=== PATIENT | female | born 1950 | race Caucasian/White ===

== ENCOUNTER → 2023-06-17 07:42 | Outpatient (REF) | payer MEDICARE, SELFPAY | LOC: WDC 07:42 | PROVIDERS: ATTENDING PHYSICIAN Surgery; FAMILY PHYSICIAN Family Medicine | DX: N64.4 Mastodynia (principal); C50.412 Malignant neoplasm of upper-outer quadrant of left female breast | CPT/HCPCS: 76642; 77061; 77065 ==

== ENCOUNTER → 2023-12-10 14:57 | Outpatient (REF) | payer MEDICARE, SELFPAY | LOC: RAD 14:57 | PROVIDERS: ATTENDING PHYSICIAN Physician Assistant Medical; FAMILY PHYSICIAN Family Medicine | DX: M79.641 Pain in right hand (principal) | CPT/HCPCS: 73130 ==

== ENCOUNTER 2024-05-13 00:29 | Inpatient (IN) | payer MEDICARE, SELFPAY ==
[2024-05-12] VITALS (9 sets, daily range): BP systolic 111–131; BP diastolic 64–89; BMI 23.4
[2024-05-12 12:30] LABS: % Basophils 0.8 % (0-2); % Eosinophils 1.5 % (0-6); % Immature Granulocytes 0.3 % (0-0.5); % Lymphocytes 23.1 % (20.5-51.1); % Monocytes 8.6 % (1.7-9.3); % Neutrophils 65.7 % (42.2-75.2); Absolute Basophils 0.1 10^3/uL (0-0.2); Absolute Eosinophils 0.1 10^3/uL (0-0.7); Absolute Lymphocytes 1.7 10^3/uL (1.2-3.4); Absolute Monocytes 0.7 10^3/uL (0.1-0.6); Absolute Neutrophils 4.9 10^3/uL (1.4-6.5); Hematocrit 37.5 % (37.0-47.0); Hemoglobin 12.4 g/dL (12.0-16.0); Mean Corp Hgb Conc. 33.1 g/dL (33.0-37.0); Mean Corpuscular Hgb 31.4 pg (27.0-31.0); Mean Corpuscular Volume 94.9 fL (81.0-99.0); Mean Platelet Volume 8.5 fL (7.4-10.4); Nucleated Red Blood Cells % 0 %; Platelet Count 365 10^3/uL (130-400); Red Blood Cell Count 3.95 10^6/uL (4.20-5.40); Red Cell Dist. Width 13.4 % (11.5-14.5); White Blood Cell Count 7.5 10^3/uL (4.8-10.8)
[2024-05-12 12:45] LABS: ALT (SGPT) 17 U/L (0-35); AST (SGOT) 26 U/L (14-36); Albumin 4.4 g/dl (3.5-5.0); Alkaline Phosphatase 89 U/L (38-126); Blood Urea Nitrogen 16 mg/dl (7-17); Calcium 9.8 mg/dl (8.4-10.2); Carbon Dioxide 24 mmol/L (22-30); Chloride 104 mmol/L (98-107); Glucose 94 mg/dl (70-99); Potassium 4.3 mmol/L (3.5-5.1); Sodium 139 mmol/L (135-145); Total Bilirubin 0.8 mg/dl (0.2-1.3); Total Protein 7.3 g/dl (6.3-8.2); eGFR > 60.00
[2024-05-12 12:54] LABS: Troponin I < 0.012 ng/ml
--- NOTE | 2024-05-12 19:03 | ED.GENMED ---
History of Present Illness
<Bekah Villalba DO - Last Filed: 05/12/24 20:25>
General
Chief Complaint: Chest Pain
Time Seen by Provider: 05/12/24 17:38
History of Present Illness
History of Present Illness:
73-year-old female with history of breast cancer status post left mastectomy in 2018 presenting to the emergency department for chest discomfort. Patient reports about 3 weeks ago she started to have pain in her chest, ribs, back. She notes that
she was having diffuse bone pain. She was seen at [facility], reports unremarkable workup. She thought that maybe her symptoms were secondary to a medication she started taking, Prolia. Her symptoms have overall improved, however reports that she
still having some discomfort in her chest. She became nervous about her symptoms today, reports that her doctor said that her bone pain could be bone cancer, so she came to the hospital for further evaluation. Notes pain with deep inspiration.
Denies difficulty breathing. Denies fever or cough. Denies abdominal pain or GI symptoms. Denies any history of blood clots. Denies additional acute medical complaints
Past History
<Bekah Villalba DO - Last Filed: 05/12/24 20:25>
Past History
ED Past Medical History: HTN ( spirolactone), Seizures (no seizures for 30 yrs carbamezapine (tregertol)) and Other (sz)
Social History
Tobacco: Non-smoker
Alcohol: None
Drug: None
Personal:
Living: with family
Employment: Employed
Family History
Family History: Diabetes
Phy Exam
<Bekah Villalba DO - Last Filed: 05/12/24 20:25>
Physical Exam
Physical Exam:
General: Well-appearing, no clinical signs of dehydration, nontoxic and in no acute distress
HEENT: protecting airway
Neck: appears supple
CV: Normal heart rate, regular rhythm. Mild tenderness to the sternal region
Resp: No accessory muscle use, no increased work of breathing, lungs clear to auscultation bilaterally
Abd: Soft and non-distended, no tenderness to palpation
Extremities: No deformities, no swelling
Neuro: alert, no focal neurologic deficit
: deferred
Rectal: deferred
Psych: Normal affect
Skin: Intact
Scores
<Bekah Villalba, DO - Last Filed: 05/12/24 20:25>
Heart Score for Chest Pain Patients
STEMI patient?: No
History: Slightly or Non-Suspicious
ECG: Normal
Age: >/= 65 years
Risk Factors: 1 or 2 Risk Factors
Troponin: </= Normal Limit
Heart Score for Chest Pain Patients: 3
Heart Score Risk: 2.5% MACE over next 6 weeks
<Karen Mixon, DO - Last Filed: 05/13/24 03:19>
Heart Score for Chest Pain Patients
Heart Score for Chest Pain Patients: 3
Heart Score Risk: 2.5% MACE over next 6 weeks
Course
<Bekah Villalba, DO - Last Filed: 05/12/24 20:25>
Orders/Labs/Results
Orders:
Orders
05/12/24 11:40
EKG [Electrocardiogram (*1)] Urgent
Reason for Study: Chest Pain
EKG- Treatment ONCE
05/12/24 12:18
Complete Blood Count/With Diff Urgent
Comprehensive Metabolic Panel Urgent
NT-proBNP Urgent
Comment: ADD ON
Troponin I Urgent
05/12/24 18:44
D-Dimer Urgent
05/12/24 19:48
CT Chest PE Study Urgent
Comment:
Reason For Exam: positive dimer, chest pain
05/12/24 22:36
Furosemide [Lasix] 40 mg IV ONCE ONE
05/12/24 22:40
Add On- LAB Urgent
Comments:: add on
Tests Added?: pro BNP
05/12/24 23:00
Flush (0.9% Sodium Chloride) [Flush (Nss)] See Dose Instructions IV PER PROTOCOL
05/12/24 23:53
COVID-19 Antigen Urgent
Source: Nasal Swab
Influenza A+B Rapid Molecular Urgent
DORIS Source: Nasal Swab
Specimen Description:
05/13/24 00:00
Admit/Transfer Patient As Directed
Co-Sign Provider:
Level of Care: Inpatient admission
Assign to:: Medical/Surgical
Physician / Group: laure lin
Diagnosis: Right pleural effusion unclear etiology
Reason for Hospitalization: Right pleural effusion unclear etiology
Expected length of stay greater than two midnights?: Yes
ELOS- Estimated Length of Stay in days: 3
I certify the patient meets the requirements for IP care: Yes
05/13/24 00:02
Code Status As Directed
Resuscitation Status: Do not resuscitate
Reached after discussion with pt or family/Healthcare POA: Yes
Decision communicated with: Per patient states nephaiyana Marin is POA [phone]
DNR Bracelet Application ONCE
05/13/24 00:05
PRN Pain Medication Management As Directed
May give lesser potent ordered pain med per pt: Yes
preference::
Protocol:: Medication orders for pain may be administered in a
manner that supports deferring to patient preference
when the pt is:
- Requesting an ordered lesser potent pain medication.
Least to most potent pain medications are defined
as: acetaminophen < NSAID < tramadol < opioids
(morphine, oxycodone, hydromorphone).
- Requesting a lesser dose of the same medication IF
ORDERED.
- Requesting a less intrusive route of administration
if both routes are prescribed by the provider (PO <
IV).
05/13/24 00:12
Code Status As Directed
Resuscitation Status: Full Code
Reached after discussion with pt or family/Healthcare POA: Yes
Decision communicated with: Per patient states faisal Marin is POA [phone]
05/13/24 00:36
Acetaminophen [Tylenol] 650 mg PO Q4HPRN PRN
05/13/24 00:36
Add On- LAB Routine
Tests Added?: Body Fluid Triglycerides
Consult Notification Routine
Specialty to Notify: IRAD (Interventional Radiology)
IRAD CONSULT Routine
Consulting Provider: Justice Garcia
Was physician already notified: No
Reason for Consult/Procedure: Right pleural effusion history of left breast CA mastectomy 2018
Acknowledgement that appropriate orders are entered: Yes
Acid Fast Culture & Smear Routine
DORIS Source: Pleural Fluid
Specimen Description:
Comment: post procedure
Body Fluid Amylase Routine
Fluid Source: Pleural
Body Fluid Cell Count Routine
What is the Body Fluid: pleural fluid
Comment: post procedure
Body Fluid Glucose Routine
Fluid Source: Pleural
Body Fluid LDH Routine
Fluid Source: Pleural
Body Fluid Protein Routine
Fluid Source: Pleural
Body Fluid Triglycerides Routine
Fluid Source: Pleural
Body Fluid pH Routine
Fluid Source: Pleural
Fluid Culture with Gram Stain Routine
DORIS Source: Pleural Fluid
Specimen Description:
Comment: post procedure
Fungus Culture Routine
DORIS Source: Pleural Fluid
Specimen Description:
Fungus Smear Routine
DORIS Source: Pleural Fluid
Specimen Description:
Gram Stain Routine
DORIS Source: Pleural Fluid
Specimen Description:
Comment: POST PROCEDURE
Activity As Directed
Activity Level: As Tolerated
Intake/ Output As Directed
Frequency: Per unit guidelines
Vital Signs As Directed
Frequency: Per unit guidelines
Weight As Directed
Frequency: Daily
IRAD Cytology Routine
Source: Pleural Fluid, Right
Clinical Impression: pos malignancy hx left breast ca
Pt Eval And Treat Routine
Activity Level: As Tolerated
DX Deep Vein Thrombosis Video Routine
05/13/24 06:00
Echo 2D MMode Color/Doppler IN AM
Reason for Study: pericardial effusion
Regular
Complete Blood Count/With Diff IN AM
Comprehensive Metabolic Panel IN AM
05/13/24 08:00
Ascorbic Acid [Vitamin C] 500 mg PO DAILY
Calcium Carbonate [Oscal Oswaldo 500] 500 mg PO TID
Cholecalciferol (Vitamin D3) [VITAMIN D3 (cholecalciferol)] 25 mcg PO DAILY
Lacosamide [Vimpat] 150 mg PO BID
Lactobac/Bifidobac [Visbiome] 1 cap PO DAILY
Magnesium Oxide 500 mg PO DAILY
Spironolactone [Aldactone] 12.5 mg PO DAILY
05/13/24 10:00
Glucose Routine
Hematocrit Routine
Comment: post procedure, add on to morning labs if already drawn
LDH Routine
Comment: post procedure, add on to morning labs if already drawn
Total Protein Routine
Comment: post procedure, add on to morning labs if already drawn
05/13/24 22:00
Heparin 5,000 units SC Q12
05/14/24 06:00
Complete Blood Count/With Diff IN AM
Comprehensive Metabolic Panel IN AM
Abnormal Lab Results
05/12/24 05/12/24
12:18 18:44
RBC 3.95 L 10^6/uL
(4.20-5.40)
MCH 31.4 H pg
(27.0-31.0)
Absolute Monos (auto) 0.7 H 10^3/uL
(0.1-0.6)
D-Dimer 5.24 H ug/mlFEU
(0.00-0.50)
05/12/24 12:18
05/12/24 12:18
Vital Signs
Initial and Last Documented VS:
Initial Vital Signs
Temp Pulse Resp BP Pulse Ox
98 F 83 16 129/74 99
05/12/24 12:06 05/12/24 12:06 05/12/24 12:06 05/12/24 12:06 05/12/24 12:06
Last Documented Vital Signs
Temp Pulse Resp BP Pulse Ox
98.2 F 77 18 131/89 96
05/13/24 00:29 05/12/24 22:41 05/12/24 18:27 05/12/24 23:00 05/12/24 23:00
<Karen Mixon, DO - Last Filed: 05/13/24 03:19>
Orders/Labs/Results
Orders:
Orders
05/12/24 11:40
EKG [Electrocardiogram (*1)] Urgent
Reason for Study: Chest Pain
EKG- Treatment ONCE
05/12/24 12:18
Complete Blood Count/With Diff Urgent
Comprehensive Metabolic Panel Urgent
NT-proBNP Urgent
Comment: ADD ON
Troponin I Urgent
05/12/24 18:44
D-Dimer Urgent
05/12/24 19:48
CT Chest PE Study Urgent
Comment:
Reason For Exam: positive dimer, chest pain
05/12/24 22:36
Furosemide [Lasix] 40 mg IV ONCE ONE
05/12/24 22:40
Add On- LAB Urgent
Comments:: add on
Tests Added?: pro BNP
05/12/24 23:00
Flush (0.9% Sodium Chloride) [Flush (Nss)] See Dose Instructions IV PER PROTOCOL
05/12/24 23:53
COVID-19 Antigen Urgent
Source: Nasal Swab
Influenza A+B Rapid Molecular Urgent
DORIS Source: Nasal Swab
Specimen Description:
05/13/24 00:00
Admit/Transfer Patient As Directed
Co-Sign Provider:
Level of Care: Inpatient admission
Assign to:: Medical/Surgical
Physician / Group: laure lin
Diagnosis: Right pleural effusion unclear etiology
Reason for Hospitalization: Right pleural effusion unclear etiology
Expected length of stay greater than two midnights?: Yes
ELOS- Estimated Length of Stay in days: 3
I certify the patient meets the requirements for IP care: Yes
05/13/24 00:02
Code Status As Directed
Resuscitation Status: Do not resuscitate
Reached after discussion with pt or family/Healthcare POA: Yes
Decision communicated with: Per patient states faisal Marin is POA [phone]
DNR Bracelet Application ONCE
05/13/24 00:05
PRN Pain Medication Management As Directed
May give lesser potent ordered pain med per pt: Yes
preference::
Protocol:: Medication orders for pain may be administered in a
manner that supports deferring to patient preference
when the pt is:
- Requesting an ordered lesser potent pain medication.
Least to most potent pain medications are defined
as: acetaminophen < NSAID < tramadol < opioids
(morphine, oxycodone, hydromorphone).
- Requesting a lesser dose of the same medication IF
ORDERED.
- Requesting a less intrusive route of administration
if both routes are prescribed by the provider (PO <
IV).
05/13/24 00:12
Code Status As Directed
Resuscitation Status: Full Code
Reached after discussion with pt or family/Healthcare POA: Yes
Decision communicated with: Per patient states faisal Marin is POA [phone]
05/13/24 00:36
Acetaminophen [Tylenol] 650 mg PO Q4HPRN PRN
05/13/24 00:36
Add On- LAB Routine
Tests Added?: Body Fluid Triglycerides
Consult Notification Routine
Specialty to Notify: IRAD (Interventional Radiology)
IRAD CONSULT Routine
Consulting Provider: Justice Garcia
Was physician already notified: No
Reason for Consult/Procedure: Right pleural effusion history of left breast CA mastectomy 2018
Acknowledgement that appropriate orders are entered: Yes
Acid Fast Culture & Smear Routine
DORIS Source: Pleural Fluid
Specimen Description:
Comment: post procedure
Body Fluid Amylase Routine
Fluid Source: Pleural
Body Fluid Cell Count Routine
What is the Body Fluid: pleural fluid
Comment: post procedure
Body Fluid Glucose Routine
Fluid Source: Pleural
Body Fluid LDH Routine
Fluid Source: Pleural
Body Fluid Protein Routine
Fluid Source: Pleural
Body Fluid Triglycerides Routine
Fluid Source: Pleural
Body Fluid pH Routine
Fluid Source: Pleural
Fluid Culture with Gram Stain Routine
DORIS Source: Pleural Fluid
Specimen Description:
Comment: post procedure
Fungus Culture Routine
DORIS Source: Pleural Fluid
Specimen Description:
Fungus Smear Routine
DORIS Source: Pleural Fluid
Specimen Description:
Gram Stain Routine
DORIS Source: Pleural Fluid
Specimen Description:
Comment: POST PROCEDURE
Activity As Directed
Activity Level: As Tolerated
Intake/ Output As Directed
Frequency: Per unit guidelines
Vital Signs As Directed
Frequency: Per unit guidelines
Weight As Directed
Frequency: Daily
IRAD Cytology Routine
Source: Pleural Fluid, Right
Clinical Impression: pos malignancy hx left breast ca
Pt Eval And Treat Routine
Activity Level: As Tolerated
DX Deep Vein Thrombosis Video Routine
05/13/24 06:00
Echo 2D MMode Color/Doppler IN AM
Reason for Study: pericardial effusion
Regular
Complete Blood Count/With Diff IN AM
Comprehensive Metabolic Panel IN AM
05/13/24 08:00
Ascorbic Acid [Vitamin C] 500 mg PO DAILY
Calcium Carbonate [Oscal Oswaldo 500] 500 mg PO TID
Cholecalciferol (Vitamin D3) [VITAMIN D3 (cholecalciferol)] 25 mcg PO DAILY
Lacosamide [Vimpat] 150 mg PO BID
Lactobac/Bifidobac [Visbiome] 1 cap PO DAILY
Magnesium Oxide 500 mg PO DAILY
Spironolactone [Aldactone] 12.5 mg PO DAILY
05/13/24 10:00
Glucose Routine
Hematocrit Routine
Comment: post procedure, add on to morning labs if already drawn
LDH Routine
Comment: post procedure, add on to morning labs if already drawn
Total Protein Routine
Comment: post procedure, add on to morning labs if already drawn
05/13/24 22:00
Heparin 5,000 units SC Q12
05/14/24 06:00
Complete Blood Count/With Diff IN AM
Comprehensive Metabolic Panel IN AM
Abnormal Lab Results
05/12/24 05/12/24
12:18 18:44
RBC 3.95 L 10^6/uL
(4.20-5.40)
MCH 31.4 H pg
(27.0-31.0)
Absolute Monos (auto) 0.7 H 10^3/uL
(0.1-0.6)
D-Dimer 5.24 H ug/mlFEU
(0.00-0.50)
05/12/24 12:18
05/12/24 12:18
Vital Signs
Initial and Last Documented VS:
Initial Vital Signs
Temp Pulse Resp BP Pulse Ox
98 F 83 16 129/74 99
05/12/24 12:06 05/12/24 12:06 05/12/24 12:06 05/12/24 12:06 05/12/24 12:06
Last Documented Vital Signs
Temp Pulse Resp BP Pulse Ox
98.2 F 77 18 131/89 96
05/13/24 00:29 05/12/24 22:41 05/12/24 18:27 05/12/24 23:00 05/12/24 23:00
<Bekah Villalba DO - Last Filed: 05/12/24 20:25>
MDM/Problems Addressed
MDM/Problems Addressed:
73-year-old female with history of breast cancer status post left mastectomy presenting for chest discomfort and pain with inspiration. Vital signs on arrival are normal.
On exam patient is resting comfortably, no acute distress or discomfort. Unremarkable cardiac and pulmonary exam. No respiratory distress. Patient EKG prior suspect, nonischemic. Patient also had laboratory analysis prior to my assessment,
unremarkable and undetectable troponin. At this time without present concern for ACS, low risk. Patient was concerned for 'bone cancer'. No indication of cancerous process by laboratory analysis. However, cannot satisfy PERC rule given patient's
prior history of cancer and pleuritic chest pain. For this reason we will add dimer
20:00 - Patient's dimer is positive. For this reason we will proceed with CT chest
<Bekah Villalba DO - Last Filed: 05/12/24 20:25>
*EKG
Interpreted by ED Provider?: Yes
EKG Intrepretation Date: 05/12/24
EKG Intrepretation Time: 19:14
Interpretation: normal
Comparison EKG: no changes (12/28/21)
Heart Rate: 75
Rate: normal
Rhythm: sinus
[place]: normal axis
Interval: normal interval
QRS Pattern: normal QRS
Ischemia: no ischemia
*Critical Care Note
Total Time (30-74mins, 75-104mins- exclusive of procedures): Not Applicable
<Kaern Mixon, DO - Last Filed: 05/13/24 03:19>
Update Note
Update Note:
CTA chest reviewed, no PE. Moderate left pleural effusion, small right pleural effusion, small pericardial effusion. Discussed with patient at bedside. Patient denies any recent fevers or cough, lower suspicion for pneumonia, will hold on
antibiotics. Patient reports worsening chest pain shortness of breath for the past 1 month. Heart RRR, decreased breath sounds at left base. Ordered Lasix. Discussed with hospitalist for admission
ED Attending Note
<Bekah Villalba, DO - Last Filed: 05/12/24 20:25>
-
Portions of this chart may have been created with voice recognition software.� Occasional wrong word or��sound alike� substitutions may have occurred due to the inherent limitations of voice recognition software.
Discharge Plan
Departure
Patient Disposition: Admit
Date of Disposition: 05/12/24
Time of Disposition: 22:55
Presentation/result/management discussed w/ accepting MD/DO: Hospitalist
Discharge Problem:
Pleural effusion, left
Interventions
Interventions:
*Risk Screen - Suicide Last Done: 05/12/24 12:09
*General Assessment Last Done: 05/12/24 20:46
*Neglect/Abuse Screening Last Done: 05/12/24 12:09
ED- Fall Risk Assessment Last Done: 05/12/24 22:33
*ED COVID-19 Vaccine History Last Done: 05/12/24 20:46
ED- Cardiac Assessment Last Done: 05/12/24 18:27
[2024-05-12 19:35] LABS: D-Dimer 5.24 ug/mlFEU (0.00-0.50)
[2024-05-12] MEDS: LASIX 40 MG IV (22:41)
[2024-05-12 23:26] LABS: NT-proBNP 349 pg/ml
--- NOTE | 2024-05-12 23:29 | HPS.HSE ---
Family Physician
-
Family Physician: Екатерина Jones
Chief Complaint
-
Left-sided chest pain x 3 weeks
History of Present Illness
73-year-old female complaining of left-sided chest discomfort to ribs and back, along with bilateral arm arthralgias over the past 3 weeks. She was seen at [facility] had unremarkable workup. She thought that maybe her symptoms are
secondary to a new medication Prolia. She reports her symptoms have overall improved however she still reports having discomfort in the chest and her left side with a fullness sensation compared to her right and was nervous about her symptoms today
when the doctor told her that the bone pain could be bone cancer so she came to the hospital for further evaluation since she had history of breast cancer status post left mastectomy in 2018. She reports pain with deep inspiration. She denies
fever, chills, cough, shortness of breath, chest pain, palpitations, abdominal pain, nausea, vomiting, diarrhea, urinary symptoms. She has past medical history of hypertension, seizures with last seizure 30 years ago, breast cancer ductal carcinoma
status post left mastectomy 2018 and chemotherapy at [facility]. In the ER she was noted to have a moderate left-sided pleural effusion and small pericardial effusion.
Medical History
Past Medical History
Past Medical History: Reports Other
Additional Past Medical History:
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
Hypertension
seizures with last seizure 30 years ago
Past Surgical History: Reports Other
Additional Past Surgical History:
Left-sided breast cancer status pos mastectomy 2018
Social History
Tobacco: Non-smoker
Alcohol: None
Drug: None
Personal: (2023 of pancreatic cancer)
Living: Alone
Employment: Retired
Family History
Family History: Not pertinent
Allergies / Home Medications
Allergies reflects when Allergies were last updated in [employer].
Home Medications with original date entered in [employer]
Allergy/Medication List:
Allergies
Allergy/AdvReac Type Severity Reaction Status Date / Time
progesterone [Progesterone] Allergy Severe Hives Verified 02/13/21 11:28
phenobarbital Allergy Unknown Verified 02/13/21 11:28
Home Medications
ascorbic acid (vitamin C) 500 mg tablet (Vitamin C) 500 mg PO DAILY 08/02/16
calcium carbonate 500 mg PO TID 08/02/16
magnesium oxide 500 mg capsule 500 mg PO DAILY 10/16/17
Lactobac no.2-Bifidobac no.1-S. thermo 112.5 billion cell capsule (Visbiome) 1 cap PO DAILY 05/12/24
cholecalciferol (vitamin D3) 25 mcg (1,000 unit) tablet (Vitamin D3) 25 mcg PO DAILY 05/12/24
denosumab 60 mg/mL subcutaneous syringe (Prolia) 60 mg SC [id number] 05/12/24
lacosamide 150 mg tablet 150 mg PO BID 05/12/24
spironolactone 25 mg tablet 12.5 mg PO DAILY 05/12/24
vitamin E 268 mg (400 unit) capsule 268 mg PO BID 05/12/24
Review of Systems
-
History Source: Patient
A 12 point ROS was completed and negative except as noted: Yes
Constitutional: Reports Fatigue; Denies Fever, Weight Loss or Chills
EENT: Denies Sore Throat or Runny Nose
Respiratory: Reports Cough and Trouble Breathing (Feels like she cannot take a deep breath)
Cardiac: Reports Chest Pain (Left-sided rib pain with fullness sensation); Denies Palpitations or Syncope
Abdomen/GI: Denies Abdominal Pain, Nausea, Vomiting, Diarrhea, Constipated, Bloody Stools or Black Stools
: Denies Dysuria, Frequency, Flank Pain, Incontinence, Difficulty Voiding or Urgency
Musculoskeletal: Denies Joint Pain or Edema
Skin: Denies Itching or Rash
Neurological: Denies Dizzy or Headache
Endocrine: Reports No Symptoms
Hematologic/Lymphatic: Reports No Symptoms
Psych: Reports Anxiety
Physical Exam
Vital Signs
Vital Signs
Temp Pulse Resp BP Pulse Ox
98 F 77 18 126/76 96
05/12/24 12:06 05/12/24 22:41 05/12/24 18:27 05/12/24 22:41 05/12/24 22:45
Physical Exam
General: Conversant; No Fever or Chills
HEENT: NormoCephalic, Anicteric, Moist mucous membranes, PERRLA, [place] Conjunctivae and No Ptosis
Respiratory: Other (Diminished throughout left lung field, right clear to auscultation)
Cardiac: S1/S2 and Regular Rhythm; No Murmur, Rub, Gallop or Peripheral Edema
Breast: Deferred by me
GI: Soft, Non Tender, Non Distended, Normal Bowel Sounds and No Hepatosplenomegaly
Rectal: Deferred by Provider
Genito-urinary: Deferred by me
Musculoskeletal: No Clubbing, No Cyanosis and No Edema
Skin: Warm and Dry; No Rash or Jaundice
Neuro: AO x 3, No Motor Deficits, Nonfocal/grossly intact, Cranial Nerves Intact and No Sensory Deficits; No Slurred Speech, Facial Droop, Tremors or Sedated
Psych: Anxious
Laboratory Results
-
05/12/24 12:18
05/12/24 12:18
Laboratory Results
Total Bilirubin 0.8 mg/dl (0.2-1.3) 05/12/24 12:18
AST 26 U/L (14-36) 05/12/24 12:18
ALT 17 U/L (0-35) 05/12/24 12:18
Alkaline Phosphatase 89 U/L (38-126) 05/12/24 12:18
Troponin I < 0.012 ng/ml 05/12/24 12:18
Impression/Plan
-
Impression/plan:
Admit to MedSurg
#Moderate left-sided pleural effusion concern for possible malignancy given history of Left breast CA postmastectomy 2018
96% RA
-Consult IR for thoracentesis with fluid cytology
-D-dimer 5.24
-Patient requesting COVID and flu test due to friends that are sick around her and a cough
CT PE study:
1. No CTA evidence for an acute pulmonary thromboembolism.
2. Moderate left and trace right pleural effusions. Small pericardial effusion.
#Small pericardial effusion on CT
-2D echo
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
Treated with mastectomy and chemotherapy at [facility]
Osteoporosis/osteopenia
Prolia injection second shot January 2024
#HTN�benign
BP 126/76
-Continue spironolactone 12.5 mg daily
#Seizures with last seizure 30 years ago
-Continue lacosamide 150 mg p.o. twice daily
#Hypomagnesemia
-Continue Mag-Ox 500 mg daily
DVT prophylaxis
Subcu heparin
Full code per patient states her nephew Wilmer Aquino [phone]
[2024-05-13] VITALS (8 sets, daily range): BP systolic 74–121; BP diastolic 57–72; PULSE 85; O2SAT 99; BMI 22.7; BMI 22.4; BMI 22.5
--- NOTE | 2024-05-13 00:13 | W.PN.UPDATE ---
Update Note
Progress Note Update
Patient is in conjunction with FISH. I agree with the findings on history and Physical. I concur with the assessment plan unless stated otherwise.
Briefly, this is a 73-year-old with past medical history significant for breast cancer status post left mastectomy and lymph node dissection, status post chemo, last chemo 2018 presents to the emergency department with 2 bilateral pleuritic chest
discomfort, fatigue and very mild dyspnea on exertion. She denies any chest pain. Patient reported that symptoms have been going on for a few weeks now. She was seen at [facility] with negative workup on April 21 and discharged home.
Since then patient reported that she felt like she had worsening bone pain however over the last week this has been improving. She is status post Prolia in January. She denies any fevers or chills. She denies any acute weight gain. She denies
any lower extremity swelling. She denies palpitations lightheadedness or dizziness.
In the emergency department she was afebrile, blood pressure was 126/76 pulse of 77 respiratory rate 18 and she was satting 98% on room air. ECG showed normal sinus rhythm at a rate of 82. Troponin negative, D-dimer was elevated BNP was normal for
age. CBC unremarkable, electrolytes BUN/creatinine are all within normal limits. Given elevated D-dimer and a history of breast cancer patient had a CT PE study. It was negative for PE. However I did show a moderate to large left pleural
effusion and a small right pleural effusion. There is a small to trace pericardial effusion without any evidence of tamponade.
On exam she is well-appearing and currently in no acute distress. No evidence of volume overload on my examination.
Assessment and plan
73-year-old with intermittent chest discomfort, mild shortness of breath, and pleuritic chest discomfort, found to have pleural effusion on CT scan. She has elevated D-dimer with no evidence of PE. Suspect malignant effusion.
- admit to med/surg
- IR consult for diagnostic thoracentesis, fluid studies, and cytology
- check covid/flu
- no evidence of acute infection
- no evidence of heart failure, obtain echo for pericardial effusion
- Pulmonary consult.
DVT PPX - lovenox sq
Code status - Full Code for now
[2024-05-13 01:19] LABS: COVID-19 Antigen Negative (Negative)
[2024-05-13 06:25] LABS: % Basophils 0.7 % (0-2); % Immature Granulocytes 0.3 % (0-0.5); % Lymphocytes 32.1 % (20.5-51.1); % Monocytes 8.8 % (1.7-9.3); % Neutrophils 56.1 % (42.2-75.2); Absolute Eosinophils 0.1 10^3/uL (0-0.7); Absolute Lymphocytes 1.9 10^3/uL (1.2-3.4); Absolute Monocytes 0.5 10^3/uL (0.1-0.6); Absolute Neutrophils 3.4 10^3/uL (1.4-6.5); Hematocrit 33.7 % (37.0-47.0); Hemoglobin 11.2 g/dL (12.0-16.0); Mean Corp Hgb Conc. 33.2 g/dL (33.0-37.0); Mean Corpuscular Hgb 31.5 pg (27.0-31.0); Mean Corpuscular Volume 94.9 fL (81.0-99.0); Mean Platelet Volume 8.8 fL (7.4-10.4); Nucleated Red Blood Cells % 0 %; Platelet Count 372 10^3/uL (130-400); Red Blood Cell Count 3.55 10^6/uL (4.20-5.40); Red Cell Dist. Width 13.3 % (11.5-14.5)
[2024-05-13 07:03] LABS: ALT (SGPT) 14 U/L (0-35); AST (SGOT) 21 U/L (14-36); Albumin 3.8 g/dl (3.5-5.0); Alkaline Phosphatase 80 U/L (38-126); Blood Urea Nitrogen 15 mg/dl (7-17); Calcium 9.3 mg/dl (8.4-10.2); Carbon Dioxide 24 mmol/L (22-30); Chloride 102 mmol/L (98-107); Estimated Creatinine Clearance 56 ml/min; Glucose 105 mg/dl (70-99); Sodium 139 mmol/L (135-145); Total Bilirubin 0.7 mg/dl (0.2-1.3); Total Protein 6.3 g/dl (6.3-8.2); eGFR > 60.00
[2024-05-13 07:40] LABS: Hepatitis C Antibody Negative (Negative)
--- NOTE | 2024-05-13 08:32 | PTCARENOTE ---
Transported to IR by PCT.
--- NOTE | 2024-05-13 09:06 | W.PN.HOSP.TC ---
Today's Communication/Plan
-
see bold
Assessment / Plan
Assessment / Plan
73-year-old with past medical history significant for breast cancer status post left mastectomy and lymph node dissection, status post chemo, last chemo 2017 presents to the emergency department with 2 bilateral pleuritic chest discomfort, fatigue
and very mild dyspnea on exertion. She denies any chest pain. Patient reported that symptoms have been going on for a few weeks now. She was seen at [facility] with negative workup on April 21 and discharged home. Since then patient
reported that she felt like she had worsening bone pain however over the last week this has been improving. She is status post Prolia in January. She denies any fevers or chills. She denies any acute weight gain. She denies any lower extremity
swelling. She denies palpitations lightheadedness or dizziness.
#Moderate left-sided pleural effusion concern for possible malignancy given history of Left breast CA postmastectomy 2017
96% RA
-Chest CT negative for PE, shows moderate left pleural effusion, small pericardial effusion
-D-dimer 5.24, COVID/flu negative
-Status post left thoracentesis draining 300 cc on 05/13, showing exudative pleural effusion
-Consult oncology, follow-up cytology
CT PE study:
1. No CTA evidence for an acute pulmonary thromboembolism.
2. Moderate left and trace right pleural effusions. Small pericardial effusion.
#Small pericardial effusion on CT
-2D echo requested
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
Treated with mastectomy and chemotherapy at [facility] [address]
Osteoporosis/osteopenia
Prolia injection second shot January 2024
#HTN�benign
BP 126/76
-Continue spironolactone 12.5 mg daily
#Seizures with last seizure 30 years ago
-Continue lacosamide 150 mg p.o. twice daily
#Hypomagnesemia
-Continue Mag-Ox 500 mg daily
DVT prophylaxis-subcu Lovenox
Full code per patient states her nephew Wilmer Aquino [phone]
Total time spent to see the patient on the floor, examine the patient, review data and lab results, discuss treatment plan with patient, nursing staff around 50 minutes.
Physical Exam
General: No acute distress
HEENT: Normocephalic, Atraumatic, EOMI, MMM
Respiratory: Clear to Auscultation bilaterally
Cardiac: Normal S1/S2, Regular Rate and Rhythm
Chest Wall: Left mastectomy noted
GI: Soft, Nontender, Nondistended, Normal Bowel Sounds
Extremities: No Clubbing, Cyanosis, or Edema
Neuro: Nonfocal/Grossly Intact
Anticipated Discharge: 24 - 48 hours
Subjective/Interval History
-
Date of Service: May 13, 2024
Objective Data
-
Labs:
Laboratory Results
05/13/24 05/13/24
05:32 10:00
WBC 6.0
Hgb 11.2 L
Hct 33.7 L Pending
Plt Count 372
Sodium 139
Potassium 4.0
Chloride 102
Carbon Dioxide 24
BUN 15
Creatinine 0.7
Glucose 105 H Pending
Calcium 9.3
Total Bilirubin 0.7
AST 21
ALT 14
Alkaline Phosphatase 80
Vital Signs:
Vital Signs
Temp Pulse Resp BP Pulse Ox
97.8 F 74 14 99/59 96
05/13/24 08:43 05/13/24 09:05 05/13/24 09:05 05/13/24 09:05 05/13/24 09:05
I&O
05/12/24 05/13/24 05/14/24
06:59 06:59 06:59
Intake Total 240 / 240
Balance 240 / 240
[2024-05-13 09:43] LABS: Body Fluid pH 7.45
[2024-05-13 10:20] LABS: Body Fluid Amylase 36 U/L; Body Fluid Glucose 106 mg/dl; Body Fluid LDH 256 U/L; Body Fluid Protein 4.3 g/dl; Body Fluid Triglycerides < 30 mg/dl
--- NOTE | 2024-05-13 10:43 | PTOTSP ---
Patient demonstrates safe and independent mobility, no skilled physical therapy needs at this time.
[2024-05-13 11:05] LABS: Body Fluid WBC 1042 /CUMM
[2024-05-13 11:06] LABS: Body Fluid Mononuclear 90.3 %; Body Fluid Polymorphonuclear 9.7 %
[2024-05-13 11:13] LABS: Body Fluid Second Tech RP
[2024-05-13] MEDS: MAGNESIUM OXIDE 500 MG PO (11:36)
[2024-05-13] MEDS: OSCAL CAL 500 500 MG PO ×3 (11:37→21:32)
[2024-05-13] MEDS: VITAMIN C 500 MG PO (11:37)
[2024-05-13] MEDS: VITAMIN D3 (cholecalciferol) 25 MCG PO (11:37)
[2024-05-13] MEDS: VISBIOME 1 CAP PO (11:37)
[2024-05-13] MEDS: VIMPAT 150 MG PO ×2 (11:38→20:00)
[2024-05-13 13:22] LABS: Hematocrit 34.6 % (37.0-47.0)
[2024-05-13 13:40] LABS: Glucose 102 mg/dl (70-99); LDH 326 U/L (120-246)
--- NOTE | 2024-05-13 16:00 | PTCARENOTE ---
Received patient from ED via stretcher. AAOx3, ambulated to bed. Steady gait. Assessed and oriented to room. Call winters in close reach.
[2024-05-13] MEDS: LOVENOX 40 MG SC (17:16)
[2024-05-13] MEDS: ALDACTONE 12.5 MG PO (21:32)
[2024-05-14 06:00] VITALS: BMI 22.5
[2024-05-14 06:18] LABS: % Basophils 0.9 % (0-2); % Eosinophils 2.2 % (0-6); % Immature Granulocytes 0.2 % (0-0.5); % Monocytes 7.3 % (1.7-9.3); % Neutrophils 48.4 % (42.2-75.2); Absolute Basophils 0.1 10^3/uL (0-0.2); Absolute Eosinophils 0.1 10^3/uL (0-0.7); Absolute Lymphocytes 2.4 10^3/uL (1.2-3.4); Absolute Monocytes 0.4 10^3/uL (0.1-0.6); Absolute Neutrophils 2.8 10^3/uL (1.4-6.5); Hematocrit 35.7 % (37.0-47.0); Hemoglobin 11.5 g/dL (12.0-16.0); Mean Corp Hgb Conc. 32.2 g/dL (33.0-37.0); Mean Corpuscular Hgb 30.8 pg (27.0-31.0); Mean Corpuscular Volume 95.7 fL (81.0-99.0); Mean Platelet Volume 8.5 fL (7.4-10.4); Nucleated Red Blood Cells % 0 %; Platelet Count 352 10^3/uL (130-400); Red Blood Cell Count 3.73 10^6/uL (4.20-5.40); Red Cell Dist. Width 13.3 % (11.5-14.5); White Blood Cell Count 5.9 10^3/uL (4.8-10.8)
[2024-05-14 06:40] LABS: ALT (SGPT) 13 U/L (0-35); AST (SGOT) 22 U/L (14-36); Albumin 3.3 g/dl (3.5-5.0); Alkaline Phosphatase 75 U/L (38-126); Blood Urea Nitrogen 20 mg/dl (7-17); Calcium 9.9 mg/dl (8.4-10.2); Carbon Dioxide 26 mmol/L (22-30); Chloride 104 mmol/L (98-107); Estimated Creatinine Clearance 56 ml/min; Glucose 101 mg/dl (70-99); Potassium 4.4 mmol/L (3.5-5.1); Sodium 137 mmol/L (135-145); Total Bilirubin 0.5 mg/dl (0.2-1.3); Total Protein 5.9 g/dl (6.3-8.2); eGFR > 60.00
[2024-05-14 07:10] VITALS: BP 114/68
[2024-05-14] MEDS: VISBIOME 1 CAP PO (08:24)
[2024-05-14] MEDS: MAGNESIUM OXIDE 500 MG PO (08:24)
[2024-05-14] MEDS: VITAMIN C 500 MG PO (08:24)
[2024-05-14] MEDS: OSCAL CAL 500 500 MG PO ×2 (08:25→15:03)
[2024-05-14] MEDS: VITAMIN D3 (cholecalciferol) 25 MCG PO (08:25)
[2024-05-14] MEDS: VIMPAT 150 MG PO (08:25)
[2024-05-14 09:05] VITALS: BP 131/78
--- NOTE | 2024-05-14 09:09 | W.PN.HOSP.TC ---
Today's Communication/Plan
-
Cleared by oncology for discharge today
Assessment / Plan
Assessment / Plan
73-year-old with past medical history significant for breast cancer status post left mastectomy and lymph node dissection, status post chemo, last chemo 2017 presents to the emergency department with 2 bilateral pleuritic chest discomfort, fatigue
and very mild dyspnea on exertion. She denies any chest pain. Patient reported that symptoms have been going on for a few weeks now. She was seen at [facility] with negative workup on April 21 and discharged home. Since then patient
reported that she felt like she had worsening bone pain however over the last week this has been improving. She is status post Prolia in January. She denies any fevers or chills. She denies any acute weight gain. She denies any lower extremity
swelling. She denies palpitations lightheadedness or dizziness.
#Moderate left-sided pleural effusion concern for possible malignancy given history of Left breast CA postmastectomy 2017
96% RA
-Chest CT negative for PE, shows moderate left pleural effusion, small pericardial effusion
-D-dimer 5.24, COVID/flu negative
-Status post left thoracentesis draining 300 cc on 05/13, showing exudative pleural effusion
-Seen by oncology, cleared for discharge, needs to f/u in office for cytology results
CT PE study:
1. No CTA evidence for an acute pulmonary thromboembolism.
2. Moderate left and trace right pleural effusions. Small pericardial effusion.
#Small pericardial effusion on CT
-2D echo requested
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
Treated with mastectomy and chemotherapy at [facility]
Osteoporosis/osteopenia
Prolia injection second shot January 2024
#HTN�benign
BP 126/76
-Continue spironolactone 12.5 mg daily
#Seizures with last seizure 30 years ago
-Continue lacosamide 150 mg p.o. twice daily
#Hypomagnesemia
-Continue Mag-Ox 500 mg daily
DVT prophylaxis-subcu Lovenox
Full code per patient states her nephew Wilmer Aquino [phone]
Physical Exam
General: No acute distress
HEENT: Normocephalic, Atraumatic, EOMI, MMM
Respiratory: Clear to Auscultation bilaterally
Cardiac: Normal S1/S2, Regular Rate and Rhythm
Chest Wall: Left mastectomy noted
GI: Soft, Nontender, Nondistended, Normal Bowel Sounds
Extremities: No Clubbing, Cyanosis, or Edema
Neuro: Nonfocal/Grossly Intact
Anticipated Discharge: Today
Subjective/Interval History
-
Date of Service: May 14, 2024
Patient's left-sided chest pain is intermittent, comes and goes. No fever, no vomiting.
Objective Data
-
Labs:
Laboratory Results
05/14/24
05:40
WBC 5.9
Hgb 11.5 L
Hct 35.7 L
Plt Count 352
Sodium 137
Potassium 4.4
Chloride 104
Carbon Dioxide 26
BUN 20 H
Creatinine 0.7
Glucose 101 H
Calcium 9.9
Total Bilirubin 0.5
AST 22
ALT 13
Alkaline Phosphatase 75
Vital Signs:
Vital Signs
Temp Pulse Resp BP Pulse Ox
97.9 F 92 24 131/78 99
05/14/24 09:05 05/14/24 09:05 05/14/24 09:05 05/14/24 09:05 05/14/24 09:05
I&O
05/13/24 05/14/24 05/15/24
06:59 06:59 06:59
Intake Total 240 / 240
Balance 240 / 240
[2024-05-14] MEDS: COLACE 100 MG PO (15:03)
[2024-05-14 15:10] VITALS: BP 120/72
--- NOTE | 2024-05-14 16:09 | W.DCSUMMARY ---
Discharge Summary
Discharge Data
Date of Admission: 05/13/24
Date of Discharge: 05/14/24
-
Pending Results: No
Hospital Course
Discharge diagnosis:
Left pleural effusion, cytology pending
Small pericardial effusion
Left-sided pleuritic chest pain, resolved
History of invasive lobular carcinoma of the left breast, status postmastectomy
Osteoporosis
Essential hypertension
History of seizures
Consults: Oncology
Procedures:
05/13/2024 left thoracentesis draining 300 cc, exudative pleural effusion, cytology pending
Hospital course:
73-year-old female with a past medical history significant for breast cancer status post left mastectomy with lymph node dissection, status post chemo, who presented with intermittent pleuritic left-sided chest pain, and was found to have a left
pleural effusion. She had a left thoracentesis draining 300 cc of fluid, exudative, cytology pending. She was seen in conjunction with oncology, who has a strong clinical suspicion for breast cancer recurrence. Oncology recommends outpatient PET
scan, and follow-up in the office for cytology results. Patient's left-sided chest pain resolved. She is medically stable for discharge. She needs to follow-up with oncology in the office as well as her primary care doctor 1 week.
Disposition: Home self-care
Discharge planning: Required 41 minutes
Discharge Plan
-
Patient Disposition: Home (Routine Discharge)
Discharge Diagnosis/Procedures: Left pleuritic chest pain, exudative effusion, history of left breast cancer status postmastectomy 2018, osteoporosis/osteopenia
Condition: Good
Diet: Regular
Activity: As tolerated
Driving Restrictions: As prior to admission
Activity Restrictions/Additional Instructions:
You may take [id number] acetaminophen, 1000 mg 3 times a day as needed for pain.
Recommend you following up with hematology/oncology for your cytology results.
Referrals:
Екатерина Jones MD [Family Provider] - in one week
Miesha Duenas MD [Active] - in two to three weeks
Prescriptions:
New
acetaminophen 500 mg tablet
1,000 mg PO TID PRN (Reason: fever or pain) Qty: 90 0RF
Continued
calcium carbonate 500 mg calcium (1,250 mg) Tablet
500 mg PO TID
ascorbic acid (vitamin C) [Vitamin C] 500 MG tablet
500 mg PO DAILY
magnesium oxide 500 MG capsule
500 mg PO DAILY
spironolactone 25 mg Tablet
12.5 mg PO DAILY
vitamin E 268 mg (400 unit) Capsule
268 mg PO BID
cholecalciferol (vitamin D3) [Vitamin D3] 25 mcg (1,000 unit) Tablet
25 mcg PO DAILY
Visbiome 112.5 billion cell Capsule
1 cap PO DAILY
lacosamide 150 mg Tablet
150 mg PO BID
Prolia 60 mg/mL Syringe
60 mg SC [id number]
Discharge Orders:
Discharge Patient (As Directed); Ordered 05/14/24
Ordered By: Mnedez Martinez
Discharge Date and Time
Discharge Date/Time: 05/14/24 18:11
Print Language: MAORI
--- NOTE | 2024-05-14 19:24 | CON.ONC ---
Impression
Impression
Hx invasive lobular carcinoma, high-risk, s/p L mastectomy
L pleural effusion, cytology pending
Pericardial effusion
Chest pain, resolved
Plan
Plan
Strong clinical suspicion for breast cancer recurrence.
Await cytology
Outpt PET scan.
Will request CA 27-29 on blood drawn earlier today.
Okay for D/C.
We will arrange outpt f/u with our group.
Patient History
History of Present Illness
73-year-old female with hx breast cancer, presents with c/o of left-sided chest discomfort to ribs and back, along with bilateral arm arthralgias over the past 3 weeks. These symptoms followed a first dose of Prolia for osteoporosis. She was seen
at [facility] and had unremarkable workup. She came to ED with persistent symptoms, out of concern for possible cancer recurrence. Pain had a pleuritic component. CT chest showed left pleural effusion. She underwent diagnostic
thoracentesis for 300 cc. Cell count no atypical cells, cytology pending. ECHO this admission showed EF 60-65%. Feeling a bit better today. States she felt her L kidney throbbing 2-3 weeks ago, otherwise no recent symptoms.
Past-Medical/Surgical History
Past Medical History
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 Jasper Jeong, [facility]
Hypertension
Seizures with last seizure 30 years ago
Past Surgical History
Left-sided breast cancer status post mastectomy 2017
Social History
Tobacco: Non-smoker
Alcohol: None
Drug: None
Personal: (2023 of pancreatic cancer)
Living: Alone
Employment: Retired
Family History
Family History: Not pertinent
Patient Medication
�Medication �Instructions �Recorded �Confirmed �Last Taken �Type
ascorbic acid (vitamin C) 500 mg 500 mg PO DAILY 08/02/16 05/12/24 10/19/17 11:00 History
tablet (Vitamin C)
calcium carbonate 500 mg PO TID 08/02/16 05/12/24 10/19/17 11:00 History
magnesium oxide 500 mg capsule 500 mg PO DAILY 10/16/17 05/12/24 10/19/17 11:00 History
Lactobac no.2-Bifidobac no.1-S. 1 cap PO DAILY 05/12/24 05/12/24 Unknown History
thermo 112.5 billion cell capsule
(Visbiome)
cholecalciferol (vitamin D3) 25 25 mcg PO DAILY 05/12/24 05/12/24 Unknown History
mcg (1,000 unit) tablet (Vitamin
D3)
denosumab 60 mg/mL subcutaneous 60 mg SC [id number] 05/12/24 05/12/24 Unknown History
syringe (Prolia)
lacosamide 150 mg tablet 150 mg PO BID 05/12/24 05/12/24 Unknown History
spironolactone 25 mg tablet 12.5 mg PO DAILY 05/12/24 05/12/24 Unknown History
vitamin E 268 mg (400 unit) capsule 268 mg PO BID 05/12/24 05/12/24 Unknown History
acetaminophen 500 mg tablet 1,000 mg (2 x 500 mg) PO TID PRN 05/14/24 Unknown Rx
fever or pain #90 tabs
Review of Systems
-
History Source: Patient and Records
All Other Systems: Reviewed and Negative
Physical Exam
-
General: Well Developed, Well Nourished and No Apparent Distress
HEENT: Moist Mucous Membranes; Negative Jaundice
Cardiology: Normal Sinus Rhythm, S1 and S2
Pulmonary: Other (Decreased breath sounds lower left lung field)
GI: Soft and Normal Bowel Sounds
Musculoskeletal: No Clubbing, No Cyanosis and No Edema
Extremities: Negative Phlebitic Signs
Neurology: Non Focal
Skin: Warm and Dry
Hematologic / Lymphatic: No Lymphadenopathy
Psych: Calm, Intact Judgement/Insight and Other (Speech slow and hesitant at times)
Labs
Lab Results
WBC 5.9 10^3/uL (4.8-10.8) 05/14/24 05:40
RBC 3.73 10^6/uL (4.20-5.40) L 05/14/24 05:40
Hgb 11.5 g/dL (12.0-16.0) L 05/14/24 05:40
Hct 35.7 % (37.0-47.0) L 05/14/24 05:40
MCV 95.7 fL (81.0-99.0) 05/14/24 05:40
MCH 30.8 pg (27.0-31.0) 05/14/24 05:40
MCHC 32.2 g/dL (33.0-37.0) L 05/14/24 05:40
RDW 13.3 % (11.5-14.5) 05/14/24 05:40
Plt Count 352 10^3/uL (130-400) 05/14/24 05:40
MPV 8.5 fL (7.4-10.4) 05/14/24 05:40
Abs Immat Gran (auto) 0.0 10^3/uL (0-0.05) 05/14/24 05:40
Absolute Neuts (auto) 2.8 10^3/uL (1.4-6.5) 05/14/24 05:40
Absolute Lymphs (auto) 2.4 10^3/uL (1.2-3.4) 05/14/24 05:40
Absolute Monos (auto) 0.4 10^3/uL (0.1-0.6) 05/14/24 05:40
Absolute Eos (auto) 0.1 10^3/uL (0-0.7) 05/14/24 05:40
Absolute Basos (auto) 0.1 10^3/uL (0-0.2) 05/14/24 05:40
Immature Gran % 0.2 % (0-0.5) 05/14/24 05:40
Neutrophils % 48.4 % (42.2-75.2) 05/14/24 05:40
Lymphocytes % 41.0 % (20.5-51.1) 05/14/24 05:40
Monocytes % 7.3 % (1.7-9.3) 05/14/24 05:40
Eosinophils % 2.2 % (0-6) 05/14/24 05:40
Basophils % 0.9 % (0-2) 05/14/24 05:40
Creatinine 0.7 mg/dL (0.6-1.0) 05/14/24 05:40
Vital Signs
Vital Signs
Temp Pulse Resp BP Pulse Ox
98.0 F 86 16 120/72 99
05/14/24 15:10 05/14/24 15:10 05/14/24 15:10 05/14/24 15:10 05/14/24 15:10
== END 2024-05-14 18:11 | disposition home or self-care (01) | DRG 187 ==
LOC: 4 EAST ACU 00:29
PROVIDERS: Clinical Nurse Specialist Family Health; Emergency Medicine; Radiology Vascular & Interventional Radiology; Student in an Organized Health Care Education/Training Program; ADMITTING PHYSICIAN Internal Medicine; ATTENDING PHYSICIAN Family Medicine; CONSULT PHYSICIAN Internal Medicine Hematology & Oncology; EMERGENCY PHYSICIAN Emergency Medicine; FAMILY PHYSICIAN Family Medicine; REFERRING PHYSICIAN Internal Medicine Cardiovascular Disease
PROC: 0W9B3ZX Drainage of Left Pleural Cavity, Percutaneous Approach, Diagnostic (ICD-10-PCS; 2024-05-13)
DX: J90 Pleural effusion, not elsewhere classified (principal); I31.39 Other pericardial effusion (noninflammatory); M81.0 Age-related osteoporosis without current pathological fracture; E83.42 Hypomagnesemia; I10 Essential (primary) hypertension; Z85.3 Personal history of malignant neoplasm of breast; Z92.21 Personal history of antineoplastic chemotherapy
CPT/HCPCS: 88305; 32555; 71045; 71275; 80053; 82150; 82945; 82947; 83615; 83880; 83986; 84155; 84157; 84478; 84484; 85014; 85025; 85379; 86803; 87015; 87070; 87102; 87116; 87205; 87206; 87502; 87811; 88112; 88341; 88342; 88360; 89051; 93005; 93306; 96374; 99285; Q9967

== ENCOUNTER → 2024-05-31 11:58 | Outpatient (REF) | payer MEDICARE, SELFPAY | LOC: HWRAD 11:58 | PROVIDERS: ATTENDING PHYSICIAN Family Medicine | DX: J90 Pleural effusion, not elsewhere classified (principal) | CPT/HCPCS: 71046 ==

== ENCOUNTER → 2024-06-21 10:01 | Outpatient (REF) | payer MEDICARE, SELFPAY | LOC: HWRAD 10:01 | PROVIDERS: ATTENDING PHYSICIAN Family Medicine | DX: J90 Pleural effusion, not elsewhere classified (principal) | CPT/HCPCS: 71046 ==